=== PATIENT | female | born 1940 | race Hispanic/Latino ===

== ENCOUNTER 2017-12-17 05:53 | Day surgery (SDC) | payer OTHER ==
[~2017-12-17] VITALS: Ht 160 cm; Wt 68.8 kg
[~2017-12-17 05:53] MED LIST: AMIL5TAB8 PO; AZAT50TA PO; CARV25TA PO; CYAN-35 SL; FOLI0.4T2 PO; FURO20TA4 PO; GLIM4TAB3 PO; INSU300I SQ; LOSA100T29 PO; POTA-79 PO; SPIR25TA4 PO; URSO500T9 PO
[2017-12-17] MEDS ORDERED: SODIUM CHLORIDE 0.9% 1000ML 1,000 ML IV ONE (06:27)
[2017-12-17 06:31] VITALS: BP 166/62
[2017-12-17] MEDS ORDERED: PROPOFOL 10 MG/ML 20ML VIAL IV ONE ×2 (07:31→07:32)
[2017-12-17] MEDS ORDERED: LIDOCAINE HCL 2% 20ML ONE ×2 (07:32→07:33)
[2017-12-17] MEDS ORDERED: FENTANYL CITRATE PF 50 MCG/1 ML 2ML VIAL ONE (07:32)
[2017-12-17] MEDS ORDERED: GLYCOPYRROLATE 0.2 MG/ML 5 ML VIAL ONE (07:32)
[2017-12-17 08:11] VITALS: BP 119/42
== END 2017-12-17 08:45 | disposition home or self-care (01) ==
LOC: DAH 05:53 → ENDO 05:53
PROVIDERS: ATTEND Internal Medicine Gastroenterology
DX: K63.5 Polyp of colon (principal); K62.1 Rectal polyp; K75.4 Autoimmune hepatitis; D50.9 Iron deficiency anemia, unspecified; Z68.30 Body mass index [BMI] 30.0-30.9, adult; I10 Essential (primary) hypertension; K21.9 Gastro-esophageal reflux disease without esophagitis; I25.10 Atherosclerotic heart disease of native coronary artery without angina pectoris; E11.9 Type 2 diabetes mellitus without complications; M19.90 Unspecified osteoarthritis, unspecified site; Z79.899 Other long term (current) drug therapy; Z90.49 Acquired absence of other specified parts of digestive tract; Z98.890 Other specified postprocedural states; Z90.710 Acquired absence of both cervix and uterus; K57.30 Diverticulosis of large intestine without perforation or abscess without bleeding
CPT/HCPCS: 45380; 45385; 82948 ×2; 88305 ×2; A4606; J2704 ×2; J3010; J3490 ×3; J7030

== ENCOUNTER → 2018-01-28 | Outpatient (CLI) | payer OTHER ==
[~2018-01-28] MED LIST changes: -SPIR25TA4 PO; +SPIR25TA6 PO
== END | disposition home or self-care (01) ==
LOC: SHCH 09:17
PROVIDERS: ATTEND Internal Medicine Cardiovascular Disease
DX: I87.2 Venous insufficiency (chronic) (peripheral) (principal)
CPT/HCPCS: 93970

== ENCOUNTER → 2018-02-19 | Outpatient (CLI) | payer OTHER | END | disposition home or self-care (01) | LOC: RAH 07:00 | PROVIDERS: ATTEND Internal Medicine Gastroenterology | DX: K74.60 Unspecified cirrhosis of liver (principal); K74.3 Primary biliary cirrhosis; Z90.49 Acquired absence of other specified parts of digestive tract | CPT/HCPCS: 76700 ==

== ENCOUNTER 2018-07-03 17:17 | Inpatient (IN) | payer OTHER ==
[~2018-07-03] VITALS: Ht 162.6 cm; Wt 74.8 kg
[~2018-07-03 17:17] MED LIST changes: +LOSA100T20 PO; -LOSA100T29 PO
[2018-07-03 17:59] LABS: HEMATOCRIT 23.4 % (36-48); LYMPHOCYTES % (AUTO) 12.1 % (21.0-51.0); MEAN CORPUSCULAR VOLUME 84.3 fL (79-99); NEUTROPHILS % (AUTO) 76.9 % (40.0-77.0); PLATELET COUNT (AUTO) 120 K/uL (130-400); RED BLOOD CELL COUNT(AUTO) 2.78 MIL/uL (4.00-5.50); RED CELL DISTRIBUTION WIDTH 17.2 % (11.0-15.5); WHITE BLOOD COUNT (AUTO) 5.7 K/uL (4.8-10.8)
[2018-07-03 18:07] LABS: CREATININE 1.3 mg/dL (0.5-1.5); POTASSIUM 3.7 mmol/L (3.5-5.1)
[2018-07-03 18:10] LABS: INR 0.94 (0.85-1.15); PARTIAL THROMBOPLASTIN TIME 25.8 SEC (26.3-35.5); PROTHROMBIN TIME 9.9 SEC (9.6-11.6)
[2018-07-03 18:12] LABS: ALBUMIN 2.3 g/dL (3.5-5.0); BILIRUBIN,TOTAL 0.4 mg/dL (0.2-1.0); TOTAL PROTEIN, SERUM 5.2 g/dL (6.0-8.3)
[2018-07-03 21:40] LABS: APPEARANCE,URINE Cloudy (CLEAR); BILIRUBIN,URINE Negative (NEGATIVE); COLOR,URINE Yellow (YELLOW); GLUCOSE, URINE (UA) Negative (NEGATIVE); KETONES,URINE Negative (NEGATIVE); LEUKOCYTE ESTERASE ,URINE Small (NEGATIVE); NITRATE,URINE Negative (NEGATIVE); OCCULT BLOOD,URINE Large (NEGATIVE); PH,URINE 5.5 (5.0-8.0); PROTEIN,URINE 300 (NEGATIVE)
[2018-07-03 21:45] LABS: BACTERIA,URINE Moderate /HPF (None Seen)
[2018-07-03 21:46] LABS: SQUAMOUS EPITHELIAL CELL,UR 0-2 /HPF (0-2); WBC,URINE 26-50 /HPF (0-1)
[2018-07-03] MEDS ORDERED: ACETAMINOPHEN 325 MG TAB PO PRN (22:45)
[2018-07-04 01:40] VITALS: BP 187/76
[2018-07-04] MEDS ORDERED: CARV12.511 PO (02:12)
[2018-07-04] MEDS ORDERED: FERR159T2 PO (02:12)
[2018-07-04 04:00] VITALS: BP 149/63
[2018-07-04 05:39] LABS: BASOPHILS % (AUTO) 0.9 % (0.0-5.0); EOSINOPHILS % (AUTO) 4.6 % (0.0-8.0); HEMATOCRIT 23.3 % (36-48); LYMPHOCYTES % (AUTO) 17.2 % (21.0-51.0); MEAN CORPUSCULAR HEMOGLOBIN 27.4 pg (27.0-33.0); MEAN CORPUSCULAR VOLUME 83.1 fL (79-99); MONOCYTES % (AUTO) 8.3 % (3.0-13.0); PLATELET COUNT (AUTO) 110 K/uL (130-400); RED BLOOD CELL COUNT(AUTO) 2.81 MIL/uL (4.00-5.50); RED CELL DISTRIBUTION WIDTH 18.3 % (11.0-15.5); WHITE BLOOD COUNT (AUTO) 3.6 K/uL (4.8-10.8)
[2018-07-04 05:54] LABS: ALBUMIN 2.1 g/dL (3.5-5.0); CREATININE 1.1 mg/dL (0.5-1.5); POTASSIUM 3.8 mmol/L (3.5-5.1); TOTAL PROTEIN, SERUM 4.7 g/dL (6.0-8.3)
[2018-07-04 05:59] LABS: % IRON SATURATION 98.2 % (22-44)
[2018-07-04] MEDS: INSULIN HUMULIN R 100 UNIT/ML 3ML SQ SCH ×4 (06:41→21:00)
[2018-07-04] MEDS: SODIUM CHLORIDE 0.9% 1000ML 1,000 ML IV SCH ×2 (06:41→22:27)
[2018-07-04 07:30] VITALS: BP 198/78
[2018-07-04] MEDS: CYANOCOBALAMIN (VITAMIN B-12) 1,000 MCG TABLET PO SCH (08:58)
[2018-07-04] MEDS: LOSARTAN 100 MG TABLET PO SCH (08:59)
[2018-07-04] MEDS: FOLIC ACID 1 MG TABLET PO SCH (08:59)
[2018-07-04] MEDS: CARVEDILOL 12.5 MG TABLET PO SCH ×2 (08:59→22:26)
[2018-07-04] MEDS: PANTOPRAZOLE SODIUM 40 MG TABLET.DR PO SCH (08:59)
[2018-07-04] MEDS ORDERED: FERROUS SULFATE 325 MG TABLET.DR PO SCH (09:00)
[2018-07-04] MEDS: URSODIOL 500 MG PO SCH ×2 (09:00→21:00)
[2018-07-04] MEDS: AZATHIOPRINE 50 MG TAB PO SCH (09:45)
[2018-07-04] MEDS: AMILORIDE HCL 5 MG TABLET PO SCH (09:45)
[2018-07-04 11:00] VITALS: BP 156/62
[2018-07-04 16:00] VITALS: BP 140/63
[2018-07-04] MEDS: GLIMEPIRIDE 2 MG TABLET PO SCH (16:43)
[2018-07-04 20:00] VITALS: BP 177/72
[2018-07-05] VITALS (23 sets, daily range): BP systolic 106–195; BP diastolic 37–79
[2018-07-05 05:16] LABS: BASOPHILS % (AUTO) 1.2 % (0.0-5.0); EOSINOPHILS % (AUTO) 5.8 % (0.0-8.0); HEMATOCRIT 27.5 % (36-48); LYMPHOCYTES % (AUTO) 16.1 % (21.0-51.0); MEAN CORPUSCULAR HEMOGLOBIN 27.7 pg (27.0-33.0); MEAN CORPUSCULAR HGB CONC 33.1 g/dL (32.0-36.0); MEAN CORPUSCULAR VOLUME 83.7 fL (79-99); NEUTROPHILS % (AUTO) 69.9 % (40.0-77.0); PLATELET COUNT (AUTO) 132 K/uL (130-400); RED BLOOD CELL COUNT(AUTO) 3.28 MIL/uL (4.00-5.50); RED CELL DISTRIBUTION WIDTH 18.4 % (11.0-15.5); WHITE BLOOD COUNT (AUTO) 4.9 K/uL (4.8-10.8)
[2018-07-05 05:47] LABS: ALBUMIN 2.2 g/dL (3.5-5.0); BILIRUBIN,TOTAL 0.6 mg/dL (0.2-1.0)
[2018-07-05] MEDS: INSULIN HUMULIN R 100 UNIT/ML 3ML SQ SCH ×4 (06:11→21:00)
[2018-07-05] MEDS: GLIMEPIRIDE 2 MG TABLET PO SCH ×2 (06:21→16:28)
[2018-07-05] MEDS: CARVEDILOL 12.5 MG TABLET PO SCH ×2 (09:19→21:37)
[2018-07-05] MEDS: LOSARTAN 100 MG TABLET PO SCH (09:19)
[2018-07-05] MEDS ORDERED: PROPOFOL 10 MG/ML 20ML VIAL IV ONE (10:50)
[2018-07-05] MEDS: SODIUM CHLORIDE 0.9% 1000ML 1,000 ML IV SCH ×2 (16:25→21:38)
[2018-07-05] MEDS: PANTOPRAZOLE SODIUM 40 MG TABLET.DR PO SCH (16:28)
[2018-07-05] MEDS: FOLIC ACID 1 MG TABLET PO SCH (16:28)
[2018-07-05] MEDS: AZATHIOPRINE 50 MG TAB PO SCH (16:28)
[2018-07-05] MEDS: AMILORIDE HCL 5 MG TABLET PO SCH (16:28)
[2018-07-05] MEDS: CYANOCOBALAMIN (VITAMIN B-12) 1,000 MCG TABLET PO SCH (16:28)
[2018-07-05] MEDS: URSODIOL 500 MG PO SCH ×2 (16:30→21:00)
[2018-07-05] MEDS ORDERED: CLONIDINE HCL 0.1 MG TABLET PO PRN (17:45)
[2018-07-05] MEDS ORDERED: LOPERAMIDE HCL 2 MG CAP PO PRN (18:15)
[2018-07-05] MEDS: METRONIDAZOLE 500MG/100ML BAG 100 ML IV SCH (21:37)
[2018-07-06 00:15] VITALS: BP 128/48
[2018-07-06] MEDS: SODIUM CHLORIDE 0.9% 1000ML 1,000 ML IV SCH (00:32)
[2018-07-06 04:15] VITALS: BP 136/55
[2018-07-06] MEDS: METRONIDAZOLE 500MG/100ML BAG 100 ML IV SCH (06:49)
[2018-07-06] MEDS: GLIMEPIRIDE 2 MG TABLET PO SCH (06:49)
[2018-07-06] MEDS: INSULIN HUMULIN R 100 UNIT/ML 3ML SQ SCH (06:49)
[2018-07-06 07:00] VITALS: BP 170/57
[2018-07-06 08:38] VITALS: BP 170/58
[2018-07-06] MEDS: AMILORIDE HCL 5 MG TABLET PO SCH (08:38)
[2018-07-06] MEDS: CYANOCOBALAMIN (VITAMIN B-12) 1,000 MCG TABLET PO SCH (08:38)
[2018-07-06] MEDS: AZATHIOPRINE 50 MG TAB PO SCH (08:38)
[2018-07-06] MEDS: URSODIOL 500 MG PO SCH (08:38)
[2018-07-06] MEDS: LOSARTAN 100 MG TABLET PO SCH (08:38)
[2018-07-06] MEDS: FOLIC ACID 1 MG TABLET PO SCH (08:38)
[2018-07-06] MEDS: CARVEDILOL 12.5 MG TABLET PO SCH (08:38)
[2018-07-06] MEDS: PANTOPRAZOLE SODIUM 40 MG TABLET.DR PO SCH (08:39)
== END 2018-07-06 11:15 | disposition home or self-care (01) | DRG 381 ==
LOC: EDH 17:17 → EDHIP 20:17 → 3BH 07-04 01:41
PROVIDERS: ADMIT Internal Medicine; ATTEND Internal Medicine
PROC: 30233N1 Transfusion of Nonautologous Red Blood Cells into Peripheral Vein, Percutaneous Approach (ICD-10-PCS; principal; 2018-07-03)
PROC: 0DB98ZX Excision of Duodenum, Via Natural or Artificial Opening Endoscopic, Diagnostic (ICD-10-PCS; 2018-07-05)
PROC: 0DB68ZX Excision of Stomach, Via Natural or Artificial Opening Endoscopic, Diagnostic (ICD-10-PCS; 2018-07-05)
DX: K22.70 Barrett's esophagus without dysplasia (principal); D62 Acute posthemorrhagic anemia; E44.1 Mild protein-calorie malnutrition; K29.01 Acute gastritis with bleeding; K74.60 Unspecified cirrhosis of liver; K27.9 Peptic ulcer, site unspecified, unspecified as acute or chronic, without hemorrhage or perforation; I25.10 Atherosclerotic heart disease of native coronary artery without angina pectoris; K75.4 Autoimmune hepatitis; K74.3 Primary biliary cirrhosis; D53.9 Nutritional anemia, unspecified; Z68.28 Body mass index [BMI] 28.0-28.9, adult; E11.9 Type 2 diabetes mellitus without complications; E78.5 Hyperlipidemia, unspecified; I10 Essential (primary) hypertension; M19.90 Unspecified osteoarthritis, unspecified site; Z82.0 Family history of epilepsy and other diseases of the nervous system; Z82.3 Family history of stroke; Z82.49 Family history of ischemic heart disease and other diseases of the circulatory system; Z82.5 Family history of asthma and other chronic lower respiratory diseases; Z83.3 Family history of diabetes mellitus; Z90.710 Acquired absence of both cervix and uterus; Z79.84 Long term (current) use of oral hypoglycemic drugs; Z79.899 Other long term (current) drug therapy; Z90.49 Acquired absence of other specified parts of digestive tract; Z88.8 Allergy status to other drugs, medicaments and biological substances; Z28.21 Immunization not carried out because of patient refusal
CPT/HCPCS: 36415; 43239; 76700; 80053; 81001; 82270; 82607; 82746; 82948; 83540; 83550; 85025; 85610; 85730; 86255; 86677; 86850; 86900; 86901; 86922; 87507; 88305; 93005; 93975; C9113; J1815; J2704; J3490; J7500; P9016

== ENCOUNTER 2019-03-21 16:53 | Observation (INO) | payer OTHER ==
[~2019-03-21] VITALS: Ht 162.6 cm; Wt 68.8 kg
[~2019-03-21 16:53] MED LIST changes: +CARV12.511 PO; -CARV25TA PO; +FERR159T2 PO; -FURO20TA4 PO; -LOSA100T20 PO; +LOSA100T58 PO; -POTA-79 PO; -SPIR25TA6 PO
[2019-03-21 17:12] LABS: BASOPHILS % (AUTO) 1.1 % (0.0-5.0); EOSINOPHILS % (AUTO) 6.2 % (0.0-8.0); HEMATOCRIT 31.9 % (36-48); LYMPHOCYTES % (AUTO) 11.3 % (21.0-51.0); MEAN CORPUSCULAR HEMOGLOBIN 25.4 pg (27.0-33.0); MEAN CORPUSCULAR HGB CONC 31.4 g/dL (32.0-36.0); MEAN CORPUSCULAR VOLUME 80.7 fL (79-99); MONOCYTES % (AUTO) 8.4 % (3.0-13.0); NUCLEATED RED BLOOD CELLS 0.1 % (0.0-0.19); PLATELET COUNT (AUTO) 91 K/uL (130-400); RED BLOOD CELL COUNT(AUTO) 3.95 MIL/uL (4.00-5.50); RED CELL DISTRIBUTION WIDTH 17.2 % (11.0-15.5); WHITE BLOOD COUNT (AUTO) 3.8 K/uL (4.8-10.8)
[2019-03-21] MEDS ORDERED: ASPIRIN 325 MG TABLET ONE (17:13)
[2019-03-21] MEDS ORDERED: NITROGLYCERIN 0.4 MG SL TAB SL ONE (17:13)
[2019-03-21 17:23] LABS: CREATININE 1.4 mg/dL (0.5-1.5); INR 0.96 (0.85-1.15); PARTIAL THROMBOPLASTIN TIME 26.6 SEC (26.3-35.5); POTASSIUM 4.5 mmol/L (3.5-5.1); PROTHROMBIN TIME 10.1 SEC (9.6-11.6)
[2019-03-21 17:32] LABS: ALBUMIN 2.9 g/dL (3.5-5.0); BILIRUBIN,TOTAL 0.5 mg/dL (0.2-1.0); TOTAL PROTEIN, SERUM 6.9 g/dL (6.0-8.3)
[2019-03-21 17:39] LABS: PLATELET MORPHOLOGY COMMENT SLIGHTLY DECREASED
[2019-03-21 17:42] LABS: B-TYPE NATRIURETIC PEPTIDE 551 pg/mL (0-100)
[2019-03-21] MEDS ORDERED: FUROSEMIDE 10 MG/ML 2ML VIAL ONE (18:15)
[2019-03-21] MEDS ORDERED: NITROGLYCERIN 1GM/1 INCH PACKET TD ONE (19:32)
[2019-03-21] MEDS ORDERED: HYDRALAZINE HCL 20 MG/ML VIAL ONE (19:32)
[2019-03-21] MEDS ORDERED: HYDRALAZINE HCL 20 MG/ML VIAL IV PRN (20:00)
[2019-03-21] MEDS: INSULIN R PO SS1 SQ SCH (21:00)
[2019-03-22] MEDS ORDERED: HYDRALAZINE HCL 20 MG/ML VIAL ONE (00:39)
[2019-03-22] MEDS ORDERED: NITROGLYCERIN 1GM/1 INCH PACKET TD ONE (01:45)
[2019-03-22 01:47] LABS: CREATINE KINASE, TOTAL 103 U/L (21-232); MYOGLOBIN 49 ng/mL (10-92); TROPONIN I < 0.04 ng/mL (0.00-0.06)
[2019-03-22] MEDS: NITROGLYCERIN 1GM/1 INCH PACKET TD SCH ×4 (06:00→18:00)
[2019-03-22] MEDS: INSULIN R PO SS1 SQ SCH ×4 (07:30→21:00)
[2019-03-22 07:48] LABS: CREATINE KINASE, TOTAL 55 U/L (21-232); MYOGLOBIN 56 ng/mL (10-92); TROPONIN I < 0.04 ng/mL (0.00-0.06)
[2019-03-22 08:30] VITALS: BP 145/76
[2019-03-22] MEDS: ASPIRIN 325 MG TABLET PO SCH (10:46)
[2019-03-22 12:00] VITALS: BP 191/73
[2019-03-22] MEDS: CARVEDILOL 12.5 MG TABLET PO SCH ×2 (12:59→21:08)
[2019-03-22] MEDS: AMILORIDE HCL 5 MG TABLET PO SCH (13:00)
[2019-03-22] MEDS: LOSARTAN 100 MG TABLET PO SCH (13:00)
[2019-03-22 16:00] VITALS: BP 151/72
[2019-03-22] MEDS ORDERED: REGADENOSON 0.4 MG/5 ML PF SYG IVP SCH (17:30)
--- NOTE | 2019-03-22 17:30 | NUR ---
Store Operations Specialist BERNABE Charles rounding. Raquel ordered for tomorrow
[2019-03-22 19:18] VITALS: BP 182/79
[2019-03-22] MEDS: DOXAZOSIN MESYLATE 2 MG TABLET PO SCH (21:08)
[2019-03-22 23:22] VITALS: BP 148/66
[2019-03-23] VITALS (15 sets, daily range): BP systolic 110–170; BP diastolic 58–88
[2019-03-23] MEDS: NITROGLYCERIN 1GM/1 INCH PACKET TD SCH ×4 (00:20→16:58)
[2019-03-23 04:40] LABS: CHOLESTEROL 142 mg/dL (<200); HDL CHOLESTEROL 41 mg/dL (35-85); LDL DIRECT 74 mg/dL (0-99); TRIGLYCERIDES 119 mg/dL (30-200)
[2019-03-23] MEDS: INSULIN R PO SS1 SQ SCH ×4 (07:04→20:37)
[2019-03-23] MEDS ORDERED: FERROUS SULFATE 325 MG TABLET.DR PO SCH (09:00)
[2019-03-23] MEDS ORDERED: INSULIN GLARGINE 100 UNITS/ML 10 ML VIAL SQ SCH (09:00)
[2019-03-23] MEDS ORDERED: FOLIC ACID 1 MG TABLET PO SCH (09:00)
[2019-03-23] MEDS ORDERED: CYANOCOBALAMIN (VITAMIN B-12) 1,000 MCG TABLET PO SCH (09:00)
[2019-03-23] MEDS: CARVEDILOL 12.5 MG TABLET PO SCH ×2 (09:00→20:37)
[2019-03-23] MEDS ORDERED: AZATHIOPRINE 50 MG TAB PO SCH (09:00)
--- NOTE | 2019-03-23 09:15 | NUR ---
[facility]
[2019-03-23] MEDS: LOSARTAN 100 MG TABLET PO SCH (16:54)
[2019-03-23] MEDS: AMILORIDE HCL 5 MG TABLET PO SCH (16:54)
[2019-03-23] MEDS: ASPIRIN 325 MG TABLET PO SCH (16:54)
[2019-03-23] MEDS: DOXAZOSIN MESYLATE 2 MG TABLET PO SCH (20:35)
--- NOTE | 2019-03-23 21:30 | NUR ---
DISCHARGE: d/c instructions given and explained to patient. pt and son verbalize understanding. IV removed and dressing applied. Pt wheeled down by Juan Luis SALDIVAR
== END 2019-03-23 21:43 | disposition home or self-care (01) ==
LOC: EDH 16:53 → EDHIP 18:01 → 4CH 03-22 08:26
PROVIDERS: ADMIT Internal Medicine Critical Care Medicine; ATTEND Internal Medicine Critical Care Medicine
DX: I25.110 Atherosclerotic heart disease of native coronary artery with unstable angina pectoris (principal); D64.9 Anemia, unspecified; E11.29 Type 2 diabetes mellitus with other diabetic kidney complication; E78.5 Hyperlipidemia, unspecified; I16.1 Hypertensive emergency; I12.9 Hypertensive chronic kidney disease with stage 1 through stage 4 chronic kidney disease, or unspecified chronic kidney disease; N18.3 Chronic kidney disease, stage 3 (moderate); I87.2 Venous insufficiency (chronic) (peripheral); Z79.4 Long term (current) use of insulin; Z82.49 Family history of ischemic heart disease and other diseases of the circulatory system; Z90.710 Acquired absence of both cervix and uterus; Z79.899 Other long term (current) drug therapy
CPT/HCPCS: 36415 ×3; 71045; 78452; 80053; 80061; 82550 ×3; 82948 ×7; 83874 ×3; 83880; 84484 ×3; 85025; 85610; 85730; 93005 ×3; 93017; 93306; 96374; 99291; A9500 ×2; G0378 ×49; J0360 ×3; J1940; J2785; J7500

== ENCOUNTER 2019-08-30 10:43 | Inpatient (IN) | payer OTHER ==
[~2019-08-30] VITALS: Ht 162.6 cm; Wt 69.9 kg
[~2019-08-30 10:43] MED LIST changes: -AMIL5TAB8 PO; -FERR159T2 PO; +FERS325 PO; +FURO20TA4 PO; -GLIM4TAB3 PO; +GLIM4TAB5 PO; +HYDR-4153 PO; +PANT40TA25 PO; -URSO500T9 PO
[2019-08-30 11:30] LABS: BASOPHILS % (AUTO) 0.9 % (0.0-5.0); EOSINOPHILS % (AUTO) 1.6 % (0.0-8.0); HEMATOCRIT 29.5 % (36-48); LYMPHOCYTES % (AUTO) 6.2 % (21.0-51.0); MEAN CORPUSCULAR HEMOGLOBIN 26.5 pg (27.0-33.0); MEAN CORPUSCULAR HGB CONC 31.9 g/dL (32.0-36.0); MEAN CORPUSCULAR VOLUME 82.9 fL (79-99); MONOCYTES % (AUTO) 5.9 % (3.0-13.0); NEUTROPHILS % (AUTO) 85.4 % (40.0-77.0); PLATELET COUNT (AUTO) 78 K/uL (130-400); RED BLOOD CELL COUNT(AUTO) 3.56 MIL/uL (4.00-5.50); RED CELL DISTRIBUTION WIDTH 16.6 % (11.0-15.5); WHITE BLOOD COUNT (AUTO) 4.3 K/uL (4.8-10.8)
[2019-08-30 11:39] LABS: CREATININE 1.5 mg/dL (0.5-1.5); POTASSIUM 3.1 mmol/L (3.5-5.1)
[2019-08-30 11:41] LABS: INR 1.02 (0.85-1.15); PARTIAL THROMBOPLASTIN TIME 25.7 SEC (26.3-35.5); PROTHROMBIN TIME 10.7 SEC (9.6-11.6)
[2019-08-30 11:45] LABS: ALBUMIN 2.7 g/dL (3.5-5.0); BILIRUBIN,TOTAL 0.6 mg/dL (0.2-1.0); TOTAL PROTEIN, SERUM 6.4 g/dL (6.0-8.3)
[2019-08-30 13:00] LABS: PLATELET MORPHOLOGY COMMENT DECREASED
[2019-08-30] MEDS ORDERED: MORPHINE SULFATE 4 MG/1ML SYG ONE (13:41)
[2019-08-30] MEDS ORDERED: ONDANSETRON HCL 4 MG/2 ML VIAL ONE (13:48)
[2019-08-30] MEDS ORDERED: CLONIDINE HCL 0.1 MG TABLET ONE (15:31)
[2019-08-30] MEDS ORDERED: POTASSIUM CHLORIDE 20MEQ/100ML 100 ML IV ONE (17:13)
[2019-08-30] MEDS ORDERED: LIDOCAINE HCL MPF 1% 5ML VIAL ONE (17:14)
[2019-08-30] MEDS ORDERED: MORPHINE SULFATE 2 MG/ML 1ML SYG ONE (18:35)
[2019-08-30 22:00] VITALS: BP 186/71
[2019-08-30 23:15] VITALS: BP 176/65
[2019-08-30] MEDS ORDERED: MORPHINE SULFATE 2 MG/ML 1ML SYG IVP PRN (23:45)
[2019-08-30] MEDS ORDERED: CLONIDINE HCL 0.1 MG TABLET PO PRN (23:45)
[2019-08-30] MEDS ORDERED: GLUCAGON 1MG KIT 1 MG ML IM PRN (23:45)
[2019-08-30] MEDS ORDERED: DIPHENHYDRAMINE HCL 25 MG CAPSULE PO PRN (23:45)
[2019-08-30] MEDS ORDERED: ACETAMINOPHEN 325 MG TAB PO PRN ×2 (23:45)
[2019-08-30] MEDS ORDERED: ONDANSETRON HCL 4 MG/2 ML VIAL IVP PRN (23:45)
[2019-08-30] MEDS ORDERED: POTASSIUM CHLORIDE 10% ELIXIR 20 MEQ/15 ML UDCUP PO PRN (23:45)
[2019-08-30] MEDS ORDERED: POTASSIUM CHLORIDE 20MEQ/100ML 100 ML IV PRN (23:45)
[2019-08-30] MEDS ORDERED: DEXTROSE 50%-WATER 50 ML DISP.SYRIN IV PRN (23:45)
[2019-08-30] MEDS ORDERED: NITROGLYCERIN 0.4 MG SL TAB SL PRN (23:45)
[2019-08-30] MEDS ORDERED: LIDOCAINE HCL-MPF 1% 2ML VIAL IJ PRN (23:45)
[2019-08-30] MEDS: SODIUM CHLORIDE 0.9% 1000ML 1,000 ML IV SCH (23:45)
[2019-08-30] MEDS ORDERED: LACTULOSE 20 GM/30 ML UDCUP PO PRN (23:45)
[2019-08-30] MEDS ORDERED: DiphenhydrAMINE HCL 50 MG/ML VIAL IVP PRN (23:45)
[2019-08-31] VITALS (27 sets, daily range): BP systolic 127–181; BP diastolic 52–87
[2019-08-31 06:31] LABS: HEMATOCRIT 26.7 % (36-48); MEAN CORPUSCULAR HEMOGLOBIN 26.1 pg (27.0-33.0); MEAN CORPUSCULAR VOLUME 81.6 fL (79-99); PLATELET COUNT (AUTO) 75 K/uL (130-400); RED BLOOD CELL COUNT(AUTO) 3.27 MIL/uL (4.00-5.50); RED CELL DISTRIBUTION WIDTH 16.4 % (11.0-15.5); WHITE BLOOD COUNT (AUTO) 3.8 K/uL (4.8-10.8)
[2019-08-31 06:38] LABS: CREATININE 1.3 mg/dL (0.5-1.5); POTASSIUM 3.4 mmol/L (3.5-5.1)
[2019-08-31] MEDS: POTASSIUM CHLORIDE 20 MEQ ERTAB PO PRN (06:44)
[2019-08-31] MEDS ORDERED: INSULIN R PO SS1 SQ SCH (07:30)
--- NOTE | 2019-08-31 07:45 | NUR ---
PATIENT GROUNDSKEEPING MAINTENANCE PATIENT ALSO STATES SHE CURRENTLY HAS A "LOOP RECORDER" AND IS FOLLOWED BY DR. OWUSU.
--- NOTE | 2019-08-31 08:00 | NUR ---
ABUNDIO DEL CASTILLO MD TO ANSWERING SERVICE REGARDING CONSULT.
--- NOTE | 2019-08-31 08:20 | NUR ---
PAGERasheed DEL CASTILLO MD TO PAGER. AWAITING CALLBACK.
--- NOTE | 2019-08-31 08:54 | NUR ---
ABUNDIO OWUSU CALLED [facility] TO INFORM OF CONSULT.
[2019-08-31] MEDS ORDERED: ENOXAPARIN SODIUM 40 MG/0.4 ML SYRINGE SQ SCH (09:00)
[2019-08-31] MEDS ORDERED: FAMOTIDINE 20MG TAB 20 MG TAB PO SCH (09:00)
--- NOTE | 2019-08-31 09:20 | NUR ---
SHELBY CRAWFORD INFORMED BY CHARGE NURSE Gee HENDERSON RN THAT SHELBY CRAWFORD FOR DR. OWUSU AWARE OF CONSULT.
[2019-08-31] MEDS: SODIUM CHLORIDE 0.9% 1000ML 1,000 ML IV SCH (12:35)
[2019-08-31] MEDS ORDERED: CEFAZOLIN SODIUM 1 GM VIAL ONE (12:36)
[2019-08-31] MEDS ORDERED: PROPOFOL 10 MG/ML 20ML VIAL IV ONE (13:19)
[2019-08-31] MEDS ORDERED: MIDAZOLAM HCL 1 MG/ML 2ML VIAL ONE (13:19)
[2019-08-31] MEDS ORDERED: FENTANYL CITRATE PF 50 MCG/1 ML 2ML VIAL ONE (13:21)
[2019-08-31] MEDS ORDERED: ROCURONIUM 10MG/1ML SYR 10 MG/ML ML ONE (13:23)
--- NOTE | 2019-08-31 14:06 | NUR ---
DC PLAN PER PATIENT, STATES SHE IS INDEPENDENT WITH ADLS PRIOR TO HOSPITAL ADMISSION, LIVES WITH SPOUSE, HAS WALKER, AND SHOWER CHAIR AND FEELS SAFE TO RETURN HOME. PENDING POSSIBLE HIP SURGERY, INFORMED PATIENT OF POSSIBILITY OF MD REFERRING TO FACILITY FOR PHYSICAL THERAPY, PATIENT AGREEABLE BUT AWAITING MD ORDERS. Addendum: 08/31/19 at 1408 by JUNI MEJIA RN CM Amended: Links added.
[2019-08-31] MEDS ORDERED: NEOSTIGMINE 5MG/5ML SYR IV ONE (14:21)
[2019-08-31] MEDS ORDERED: GLYCOPYRROLATE 1 MG/5 ML SYRINGE ONE (14:21)
[2019-08-31] MEDS ORDERED: POTASSIUM CHLORIDE 20MEQ/100ML 100 ML IV PRN (14:30)
[2019-08-31] MEDS ORDERED: HYDRALAZINE HCL 20 MG/ML VIAL ONE (15:07)
[2019-08-31] MEDS ORDERED: GLUCAGON 1MG KIT 1 MG ML IM PRN (15:45)
[2019-08-31] MEDS ORDERED: DEXTROSE 50%-WATER 50 ML DISP.SYRIN IV PRN (15:45)
--- NOTE | 2019-08-31 15:45 | NUR ---
POST OP PT ARRIVED TO FLOOR FROM PACU,PT IS AWAKE, AND ALERT, RIGHT LATERAL HIP DRESSING D/I, GOOD CMS, TEDS AND SCDS IN PLACED, CALL COLLINS WITHIN REACH.
[2019-08-31] MEDS ORDERED: HYDROCODONE/ACETAMINOPHEN 10/325 MG TAB PO PRN ×2 (16:30)
[2019-08-31] MEDS: INSULIN HUMULIN R 100 UNIT/ML 3ML SQ SCH ×2 (16:30→20:55)
[2019-08-31] MEDS: KETOROLAC TROMETHAMINE 30MG/ML IM PRN (17:28)
[2019-08-31] MEDS: CEFAZOLIN SODIUM 1 GM VIAL IVP SCH ×2 (17:31→23:51)
[2019-09-01] MEDS: SODIUM CHLORIDE 0.9% 1000ML 1,000 ML IV SCH (02:26)
[2019-09-01 03:43] VITALS: BP 152/62
[2019-09-01 05:38] LABS: BASOPHILS % (AUTO) 0.9 % (0.0-5.0); EOSINOPHILS % (AUTO) 1.6 % (0.0-8.0); HEMATOCRIT 25.8 % (36-48); LYMPHOCYTES % (AUTO) 9.1 % (21.0-51.0); MEAN CORPUSCULAR HEMOGLOBIN 26.7 pg (27.0-33.0); MEAN CORPUSCULAR HGB CONC 32.3 g/dL (32.0-36.0); MEAN CORPUSCULAR VOLUME 82.7 fL (79-99); MONOCYTES % (AUTO) 7.9 % (3.0-13.0); NEUTROPHILS % (AUTO) 80.5 % (40.0-77.0); NUCLEATED RED BLOOD CELLS 0.1 % (0.0-0.19); PLATELET COUNT (AUTO) 79 K/uL (130-400); RED BLOOD CELL COUNT(AUTO) 3.12 MIL/uL (4.00-5.50); RED CELL DISTRIBUTION WIDTH 16.6 % (11.0-15.5); WHITE BLOOD COUNT (AUTO) 6.6 K/uL (4.8-10.8)
[2019-09-01 05:41] LABS: CREATININE 1.4 mg/dL (0.5-1.5); POTASSIUM 3.5 mmol/L (3.5-5.1)
[2019-09-01] MEDS: INSULIN HUMULIN R 100 UNIT/ML 3ML SQ SCH ×3 (07:21→21:00)
[2019-09-01 07:55] VITALS: BP 171/71
[2019-09-01] MEDS: KETOROLAC TROMETHAMINE 30MG/ML IM PRN (09:01)
[2019-09-01 11:44] VITALS: BP 158/66
[2019-09-01] MEDS: ACETAMINOPHEN-CODEINE 300/30MG TAB PO PRN ×2 (12:27→20:49)
--- NOTE | 2019-09-01 14:26 | NUR ---
CM NOTE/SNF REFERRAL JESSE SIGNED, NEW ORDER FOR SNF REFERRAL. CLINICALS AND PASRR FAXED AND EMAILED TO [facility] [employer], ISABEL. WILL FOLLOW UP FOR AUTHORIZATION. PENDING TO DC WHEN ACCEPTED.
[2019-09-01 16:34] VITALS: BP 178/72
[2019-09-01 20:00] VITALS: BP 157/85
[2019-09-02] VITALS (7 sets, daily range): BP systolic 139–180; BP diastolic 63–75
[2019-09-02 05:14] LABS: HEMATOCRIT 25.6 % (36-48); MEAN CORPUSCULAR HGB CONC 32.1 g/dL (32.0-36.0); PLATELET COUNT (AUTO) 100 K/uL (130-400); RED BLOOD CELL COUNT(AUTO) 3.16 MIL/uL (4.00-5.50); RED CELL DISTRIBUTION WIDTH 16.6 % (11.0-15.5); WHITE BLOOD COUNT (AUTO) 6.1 K/uL (4.8-10.8)
[2019-09-02 05:44] LABS: CREATININE 1.3 mg/dL (0.5-1.5); POTASSIUM 3.3 mmol/L (3.5-5.1)
[2019-09-02] MEDS: INSULIN HUMULIN R 100 UNIT/ML 3ML SQ SCH ×4 (06:15→21:00)
--- NOTE | 2019-09-02 06:30 | NUR ---
F/C F/C DISCONTINUED ORDERED, TOLERATED WELL, DTV, INSTRUCT PATIENT TO CALL NURSE WHEN URGE TO VOID, PATIENT VERBALIZES UNDERSTANDING VIA TEACH BACK, CALL COLLINS AT REACH
[2019-09-02] MEDS: POTASSIUM CHLORIDE 20 MEQ ERTAB PO PRN ×3 (06:37→17:51)
[2019-09-02] MEDS: ACETAMINOPHEN-CODEINE 300/30MG TAB PO PRN ×2 (08:18→12:27)
[2019-09-02] MEDS ORDERED: IBUPROFEN 600 MG TABLET PO PRN (10:45)
[2019-09-02] MEDS: KETOROLAC TROMETHAMINE 30MG/ML IM PRN (12:07)
[2019-09-02] MEDS ORDERED: PREGABALIN 25 MG CAP ONE (12:19)
[2019-09-02] MEDS: PREGABALIN 25 MG CAP PO SCH ×2 (12:22→19:52)
--- NOTE | 2019-09-02 15:17 | NUR ---
CM Note: [facility] pending ins auth CM spoke to Marychuy peralta/mariah. Pt still pending ins auth. CM informed [facility], pending to respond. Primary nurse aware. CM to cont to follow up.
--- NOTE | 2019-09-02 15:55 | NUR ---
CM Note: Ru ins auth CM spoke to Marychuy peralta/Ru, pt has ins auth. Pt safe to transfer via [facility] transport van. Primary nurse aware. CM to cont to follow up.
[2019-09-02] MEDS: APIXABAN 2.5 MG TABLET PO SCH (19:52)
[2019-09-03 04:00] VITALS: BP 130/68
[2019-09-03 04:28] LABS: HEMATOCRIT 25.6 % (36-48); MEAN CORPUSCULAR HEMOGLOBIN 26.9 pg (27.0-33.0); MEAN CORPUSCULAR VOLUME 81.4 fL (79-99); PLATELET COUNT (AUTO) 106 K/uL (130-400); RED BLOOD CELL COUNT(AUTO) 3.15 MIL/uL (4.00-5.50); RED CELL DISTRIBUTION WIDTH 16.4 % (11.0-15.5); WHITE BLOOD COUNT (AUTO) 6.1 K/uL (4.8-10.8)
[2019-09-03 04:38] LABS: CREATININE 1.2 mg/dL (0.5-1.5); POTASSIUM 4.1 mmol/L (3.5-5.1)
[2019-09-03] MEDS: INSULIN HUMULIN R 100 UNIT/ML 3ML SQ SCH ×3 (06:18→16:30)
[2019-09-03 07:30] VITALS: BP 169/73
--- NOTE | 2019-09-03 07:55 | NUR ---
BOWEL MOVEMENT PATIENT STATES "I HAVE BEEN HAVING DIARRHEA ALL NIGHT." I ASKED PATIENT "HOW MANY BOWEL MOVEMENTS DID YOU HAVE?" AND PATIENT REPLIED "ABOUT 4 SINCE LAST NIGHT. BUT I WAS TOO EMBARRASSED TO TELL THE NURSE AND POLITICAL SCIENCE FACULTY MEMBER BECAUSE THEY WERE MALES." I ASKED PATIENT "WERE YOUR BOWEL MOVEMENTS LOOSE OR WATERY TEXTURE?" AND PATIENT REPLIED "YES". I STARTED C. DIFF FORM PER PATIENT REPORT OF "[facility]". I EXPLAINED TO PATIENT THAT THE NEXT BOWEL MOVEMENT WOULD BE SENT TO LAB IF WATERY IN TEXTURE.
--- NOTE | 2019-09-03 08:15 | NUR ---
BOWEL MOVEMENT PATIENT HAD A BOWEL MOVEMENT, FECES WAS BROWN IN COLOR AND FORMED. STOOL DOES NOT MEET CRITERIA TO SEND SAMPLE TO LAB.
[2019-09-03] MEDS: PREGABALIN 25 MG CAP PO SCH ×2 (08:47→14:07)
[2019-09-03] MEDS: APIXABAN 2.5 MG TABLET PO SCH (08:47)
[2019-09-03] MEDS: ACETAMINOPHEN-CODEINE 300/30MG TAB PO PRN (08:47)
[2019-09-03] MEDS: KETOROLAC TROMETHAMINE 30MG/ML IM PRN (10:42)
[2019-09-03 10:56] VITALS: BP 135/69
--- NOTE | 2019-09-03 12:25 | NUR ---
DR. WASHIGNTON/Larry NORRIS, [facility] AND [facility]. STATED THEY CANNOT PROVIDE RX PAIN MEDICATION THEY WILL NOT BE FOLLOWING PATIENT AT [facility], RX WOULD HAVE TO BE PROVIDED BY EITHER DR. BRADFORD OR PATIENTS PRIMARY MD (DR. BRIONES).
--- NOTE | 2019-09-03 12:28 | NUR ---
DR. BRADFORD SPOKE TO DR. BRADFORD REGARDING D/C PLAN TO [facility] TODAY, BUT RX FOR PAIN MEDICATION NEEDED. DR. BRADFORD REPLIED THAT HE WOULD STOP BY "[facility] TODAY" TO PROVIDE RX FOR PAIN MEDICATION.
[2019-09-03 16:34] VITALS: BP 154/63
--- NOTE | 2019-09-03 18:00 | NUR ---
d/c report called and faxed to shanita josé at the [facility]; they will be sending there van to pick her up; pt states understanding of transfer and is ready to go. iv access removed.
--- NOTE | 2019-09-03 18:14 | NUR ---
pt and family stated understanding of all d/c instructions, iv access x2 removed;
== END 2019-09-03 18:42 | DRG 481 ==
LOC: EDH 10:43 → EDHIP 14:54 → 4AH 19:53
PROVIDERS: ADMIT Internal Medicine; ATTEND Internal Medicine
PROC: 0QS604Z Reposition Right Upper Femur with Internal Fixation Device, Open Approach (ICD-10-PCS; principal; 2019-08-31 13:18)
DX: S72.141A Displaced intertrochanteric fracture of right femur, initial encounter for closed fracture (principal); D62 Acute posthemorrhagic anemia; S80.01XA Contusion of right knee, initial encounter; E87.6 Hypokalemia; I25.10 Atherosclerotic heart disease of native coronary artery without angina pectoris; M06.9 Rheumatoid arthritis, unspecified; G89.29 Other chronic pain; Z90.49 Acquired absence of other specified parts of digestive tract; N18.9 Chronic kidney disease, unspecified; E11.22 Type 2 diabetes mellitus with diabetic chronic kidney disease; E78.5 Hyperlipidemia, unspecified; Z86.73 Personal history of transient ischemic attack (TIA), and cerebral infarction without residual deficits; I12.9 Hypertensive chronic kidney disease with stage 1 through stage 4 chronic kidney disease, or unspecified chronic kidney disease; W01.0XXA Fall on same level from slipping, tripping and stumbling without subsequent striking against object, initial encounter; Y92.009 Unspecified place in unspecified non-institutional (private) residence as the place of occurrence of the external cause; Z90.710 Acquired absence of both cervix and uterus; I48.91 Unspecified atrial fibrillation; Y93.89 Activity, other specified; Y99.8 Other external cause status; Z82.49 Family history of ischemic heart disease and other diseases of the circulatory system; Z88.8 Allergy status to other drugs, medicaments and biological substances
CPT/HCPCS: 36415; 70450; 71045; 73502; 73503; 73562; 80048; 80053; 82948; 83880; 85025; 85027; 85610; 85730; 86850; 86900; 86901; 93005; 97039; G0378; J0360; J0690; J1815; J1885; J2250; J2270; J2405; J2704; J2710; J3010; J3480; J3490; J7030; Q0163

== ENCOUNTER → 2019-11-17 | Outpatient (CLI) | payer OTHER ==
[~2019-11-17] MED LIST changes: +ACET1TAB12 PO; +AMIL5TAB8 PO; +APIX2.5T PO; +CLON0.1T PO; -CYAN-35 SL; +DOXY100T21 PO; +FLUC150T6 PO; -FOLI0.4T2 PO; -FURO20TA4 PO; +GLIM4TAB36 PO; -GLIM4TAB5 PO; +HONEY 1 APPL/ML TUBE TP ONE; -HYDR-4153 PO; +LIDOCAINE/PRILOCAINE CREAM 5GM TUBE TP ONE; -LOSA100T58 PO; +ONDA4TAB4 PO; +OXYC5CAP19 PO; +POTA-79 PO; +TORS20TA4 PO
[2019-11-17 11:47] VITALS: BP 103/51
== END | disposition home or self-care (01) ==
LOC: WHH 08:45
PROVIDERS: ATTEND Podiatrist Foot & Ankle Surgery
DX: E11.622 Type 2 diabetes mellitus with other skin ulcer (principal); L97.312 Non-pressure chronic ulcer of right ankle with fat layer exposed; L97.811 Non-pressure chronic ulcer of other part of right lower leg limited to breakdown of skin; E11.621 Type 2 diabetes mellitus with foot ulcer; L97.412 Non-pressure chronic ulcer of right heel and midfoot with fat layer exposed; E78.5 Hyperlipidemia, unspecified; E66.9 Obesity, unspecified; E11.22 Type 2 diabetes mellitus with diabetic chronic kidney disease; N18.6 End stage renal disease; E11.52 Type 2 diabetes mellitus with diabetic peripheral angiopathy with gangrene; I96 Gangrene, not elsewhere classified; I50.32 Chronic diastolic (congestive) heart failure; I25.10 Atherosclerotic heart disease of native coronary artery without angina pectoris; K74.60 Unspecified cirrhosis of liver; K75.4 Autoimmune hepatitis; G62.0 Drug-induced polyneuropathy; E78.00 Pure hypercholesterolemia, unspecified; Z90.49 Acquired absence of other specified parts of digestive tract; Z90.710 Acquired absence of both cervix and uterus; Z74.01 Bed confinement status; Z99.2 Dependence on renal dialysis; Z79.01 Long term (current) use of anticoagulants; Z79.02 Long term (current) use of antithrombotics/antiplatelets; Z79.82 Long term (current) use of aspirin; Z79.4 Long term (current) use of insulin; Z79.899 Other long term (current) drug therapy; Z86.73 Personal history of transient ischemic attack (TIA), and cerebral infarction without residual deficits
CPT/HCPCS: 11042; 11045; A4450; J3490

== ENCOUNTER → 2019-12-01 | Outpatient (CLI) | payer OTHER ==
[~2019-12-01] MED LIST changes: -LIDOCAINE/PRILOCAINE CREAM 5GM TUBE TP ONE
[2019-12-01 13:40] VITALS: BP 103/57
== END | disposition home or self-care (01) ==
LOC: WHH 08:30
PROVIDERS: ATTEND Podiatrist Foot & Ankle Surgery
DX: E11.622 Type 2 diabetes mellitus with other skin ulcer (principal); L97.311 Non-pressure chronic ulcer of right ankle limited to breakdown of skin; L97.811 Non-pressure chronic ulcer of other part of right lower leg limited to breakdown of skin; E11.621 Type 2 diabetes mellitus with foot ulcer; L97.411 Non-pressure chronic ulcer of right heel and midfoot limited to breakdown of skin; E11.22 Type 2 diabetes mellitus with diabetic chronic kidney disease; I13.2 Hypertensive heart and chronic kidney disease with heart failure and with stage 5 chronic kidney disease, or end stage renal disease; N18.6 End stage renal disease; I50.32 Chronic diastolic (congestive) heart failure; E11.52 Type 2 diabetes mellitus with diabetic peripheral angiopathy with gangrene; I96 Gangrene, not elsewhere classified; E11.42 Type 2 diabetes mellitus with diabetic polyneuropathy; I25.10 Atherosclerotic heart disease of native coronary artery without angina pectoris; E66.9 Obesity, unspecified; E78.5 Hyperlipidemia, unspecified; E78.00 Pure hypercholesterolemia, unspecified; E03.9 Hypothyroidism, unspecified; K74.60 Unspecified cirrhosis of liver; K75.4 Autoimmune hepatitis; G62.0 Drug-induced polyneuropathy; Z90.49 Acquired absence of other specified parts of digestive tract; Z90.710 Acquired absence of both cervix and uterus; Z74.01 Bed confinement status; Z99.2 Dependence on renal dialysis; Z79.01 Long term (current) use of anticoagulants; Z79.02 Long term (current) use of antithrombotics/antiplatelets; Z79.82 Long term (current) use of aspirin; Z79.4 Long term (current) use of insulin; Z79.899 Other long term (current) drug therapy; Z86.73 Personal history of transient ischemic attack (TIA), and cerebral infarction without residual deficits; Z88.5 Allergy status to narcotic agent; Z88.8 Allergy status to other drugs, medicaments and biological substances
CPT/HCPCS: 82948; G0463